=== PATIENT | female | born 1940 ===

== ENCOUNTER 2018-05-21 09:36 | Day surgery (SDC) | payer OTHER, MEDICAID ==
[2018-05-21 10:14] VITALS: O2SAT 100
[2018-05-21 10:30] VITALS: BMI 22.1
[2018-05-21] MEDS ORDERED: Propofol 10 mg/ml Inj (20 ML) ONE (11:14)
--- NOTE | 2018-05-21 11:16 | CP.SDSHP ---
Same Day Surgery H & P - History Proposed Procedure: EGD Pre-Op Diagnosis: SEE NOTES - Previous Medical/Surgical History Cardiac: Hypertension Endocrine/Metabolic: Diabetes, Other Misc: Other Pain: 4.Moderate Pain - Allergies Allergies: Allergies aspirin Adverse Reaction (Intermediate, Verified 04/17/16 18:13) GI UPSET AVOIDS ASPIRIN USE R/T ULCER - Physical Exam General Appearance: N Vital Signs: Vital Signs 05/21/18 10:05 Temperature 97.5 F L Pulse Rate 64 Respiratory 16 Rate Blood Pressure 166/54 H O2 Sat by Pulse 100 Oximetry Mental Status: Alert & Oriented x3 Neuro: WNL Heart: Other Lungs: WNL GI: Other - {Optional Preform as Required} Breast: WNL Abdomen: Other Rectal: Other Integument: WNL : WNL Ortho: Other ENT: WNL - Impression Pt. Evaluated Today:Candidate for Anesthesia & Procedure: Yes - Date & Time Time: 11:16 Short Stay Discharge - Short Stay Discharge Admitting Diagnosis/Reason for Visit: DYSPEPSIA Disposition: HOME/ ROUTINE Referrals: Romi Mackey MD [Primary Care Provider] -
[2018-05-21] MEDS ORDERED: Lactated Ringer's 500 ML IV ONE (11:19)
[2018-05-21] MEDS ORDERED: Belladonna-Phenobarbital PO STA (11:32)
[2018-05-21] MEDS ORDERED: Pantoprazole 40 mg EC Tab PO STA (11:32)
[2018-05-21 12:08] VITALS: TEMP 98.4
[2018-05-21 13:24] VITALS: BP 138/74; PULSE 60; RESP 15
== END 2018-05-21 12:50 | disposition home or self-care (01) ==
LOC: C.ENDO 09:36
PROVIDERS: ATTEND Specialist
DX: K25.9 Gastric ulcer, unspecified as acute or chronic, without hemorrhage or perforation (principal); K26.9 Duodenal ulcer, unspecified as acute or chronic, without hemorrhage or perforation; K44.9 Diaphragmatic hernia without obstruction or gangrene; K30 Functional dyspepsia; I10 Essential (primary) hypertension; E11.9 Type 2 diabetes mellitus without complications; Z88.6 Allergy status to analgesic agent
CPT/HCPCS: 43239; 82948; 88305; 88342; J2001; J2704; J7120

== ENCOUNTER 2018-06-27 07:44 | Day surgery (SDC) | payer MEDICARE, MEDICAID ==
[2018-06-27 08:01] VITALS: BMI 22.4
[2018-06-27 08:08] VITALS: O2SAT 100
--- NOTE | 2018-06-27 10:09 | CP.SDSHP ---
Same Day Surgery H & P - History Proposed Procedure: COLONSCOPY Pre-Op Diagnosis: SEE NOTES - Previous Medical/Surgical History Cardiac: Hypertension Endocrine/Metabolic: Diabetes, Other Pain: 4.Moderate Pain - Allergies Allergies: Allergies No Known Allergies Allergy (Verified 06/27/18 08:31) - Physical Exam General Appearance: N Vital Signs: Vital Signs 06/27/18 08:01 Temperature 97.1 F L Pulse Rate 67 Respiratory 18 Rate Blood Pressure 168/68 H O2 Sat by Pulse 100 Oximetry Mental Status: Alert & Oriented x3 Neuro: WNL Heart: Other Lungs: WNL GI: Other - {Optional Preform as Required} Breast: WNL Abdomen: Other Rectal: Other Integument: WNL : WNL Ortho: Other ENT: WNL - Impression Pt. Evaluated Today:Candidate for Anesthesia & Procedure: Yes - Date & Time Time: 10:09 Short Stay Discharge - Short Stay Discharge Admitting Diagnosis/Reason for Visit: DIARRHEA Disposition: HOME/ ROUTINE
[2018-06-27] MEDS ORDERED: Propofol 10 mg/ml Inj (20 ML) ONE ×2 (10:19→10:35)
[2018-06-27 10:22] VITALS: RESP 19
[2018-06-27] MEDS ORDERED: Glucagon Recombinant 1 mg Inj ONE (10:33)
[2018-06-27] MEDS ORDERED: Belladonna-Phenobarbital PO ONE (11:00)
[2018-06-27 11:38] VITALS: BP 135/76; PULSE 69; TEMP 98.3
== END 2018-06-27 11:55 | disposition home or self-care (01) ==
LOC: C.ENDO 07:44
PROVIDERS: ATTEND Specialist
DX: K57.30 Diverticulosis of large intestine without perforation or abscess without bleeding (principal); K64.4 Residual hemorrhoidal skin tags; K64.8 Other hemorrhoids; R19.7 Diarrhea, unspecified; E11.9 Type 2 diabetes mellitus without complications; I10 Essential (primary) hypertension
CPT/HCPCS: 45378; 82948; J1610; J2704

== ENCOUNTER 2018-06-28 10:59 | Outpatient (CLI) | payer MEDICARE, MEDICAID | END 2018-06-28 11:00 | disposition home or self-care (01) | LOC: C.EEG 10:59 | DX: F03.90 Unspecified dementia, unspecified severity, without behavioral disturbance, psychotic disturbance, mood disturbance, and anxiety (principal) ==